=== PATIENT | female | born 1960 | race Caucasian/White ===

== ENCOUNTER 2019-07-03 21:14 | Emergency (ER) | payer BC ==
[2019-07-03] MEDS ORDERED: Etomidate* 2 MG/ML 20 ML VIAL (40 MG) ONE (21:16)
[2019-07-03] MEDS ORDERED: Succinylcholine* 20 MG/ML 10 ML VIAL ONE (21:18)
[2019-07-03] MEDS ORDERED: NS 0.9% 1000 ML** 1,000 ML IV ONE (21:20)
--- NOTE | 2019-07-03 21:27 | ED ---
Neurological HPI - HPI Summary HPI Summary: HISTORY OF PRESENT ILLNESS IS LIMITED DUE TO LEVEL 5 CAVEAT - UNRESPONSIVE. Patient is a 58 y/o F presenting to the ED via EMS for a chief complaint of headache. Per EMS, patient was unresponsive on arrival and was reported to be complaining of a headache and speaking to her when she lost consciousness. Patient was given suction by EMS due to a respiratory rate of 6- 8. Any significant PMHx was denied by the patient's . Last known well time was approximately 20:30 on 07/03/19. Patient is a tobacco user. Patient does not have a fever. - History of Current Complaint Stated Complaint: CODE FARRELL Hx Obtained From: EMS Onset/Duration: Sudden Onset Timing: Sudden Onset Associated Signs and Symptoms: Positive: Headache, Loss of Consciousness PMH/Surg Hx/FS Hx/Imm Hx Previously Healthy: No - LIMITED DUE TO LEVEL 5 CAVEAT - UNRESPONSIVE. Cardiovascular History: Denies: Hx Hypertension Sensory History: Denies: Hx Legally Blind, Hx Deafness Opthamlomology History: Denies: Hx Legally Blind EENT History: Denies: Hx Deafness Infectious Disease History: No - Family History Known Family History: Positive: Unknown, Non-Contributory Review of Systems - ROS Summary Review of Systems Summary: REVIEW OF SYSTEMS IS LIMITED DUE TO LEVEL 5 CAVEAT - UNRESPONSIVE. Negative: Fever Positive: Headache, Syncope All Other Systems Reviewed And Are Negative: No Physical Exam - Summary Physical Exam Summary: PHYSICAL EXAM IS LIMITED DUE TO LEVEL 5 CAVEAT - UNRESPONSIVE. Appearance: Arrives to ED unresponsive and hyponeic with respiratory rate of 6- 8 diffusely flaccid. Skin: Warm, dry, no obvious rash Eyes: sclera anicteric, no conjunctival pallor ENT: mucous membranes moist, pharynx appears normal Neck: Supple, nontender Respiratory: Clear to auscultation, no signs of respiratory distress Cardiovascular: Normal S1, S2. No murmurs. Normal distal pulses in tibial and radial bilaterally. Abdomen: Soft, nontender, normal active bowel sounds present Musculoskeletal: Normal, Strength/ROM Intact Neurological: Comatose with a GCS of 6, responds to painful stimuli, diffusely flaccid, right pupil is normal and reactive, left pupil is dilated and unreactive, no external signs of trauma. Psychiatric: affect is normal, does not appear anxious or depressed Triage Information Reviewed: Yes Vital Signs Reviewed: Yes - Thelma Coma Scale Best Eye Response: 1 - None Best Motor Response: 4 - Withdraws Best Verbal Response: 1 - None Coma Scale Total: 6 Procedures - Procedure Summary Procedure Summary: Second intubation was displaced during CXR. 7.5 cm ET tube under scope guidance placed without complication. - Sedation Patient Received Moderate/Deep Sedation with Procedure: No - Intubation Time of Intubation: 19:16 Intubation Method: orotracheal Tube Size (cm): 8.0 Medications: Succinylcholine Breath Sounds after Intubation: equal Intubation Complications: no complications Post Intubation Xray: Yes Diagnostics - Laboratory Result Diagrams: 07/03/19 21:23 07/03/19 21:23 Lab Statement: Any lab studies that have been ordered have been reviewed, and results considered in the medical decision making process. - Radiology Chest X-ray Radiology Interpretation Completed By: ED Physician Summary of Radiographic Findings: Chest X-ray IMPRESSION: ET tube is in good position just above the level of the aortic arch. Reviewed and interpreted by Dr. Lea, pending official radiology report. - CT Brain CT CT Interpretation Completed By: Radiologist Summary of CT Findings: Brain CT IMPRESSION: Large volume acute subarachnoid hemorrhage with intraventricular extension and mild frontal lobe rightward midline shift. Focal suprasellar cistern hematoma suggests a possible basilar or left carotid aneurysm etiology. Recommend followup head CTA. [place] Stroke Program Early CT Score (ASPECTS) = 10. Reviewed by Dr. Lea. - EKG 21:20 Cardiac Rate: NL - 72 BPM EKG Rhythm: Sinus Rhythm ST Segment: Normal Ectopy: None Summary of EKG Findings: EKG at 21:20 shows NSR at 72 BPM, no STEMI, P waves, QRS complex, and T waves are within normal limits, T waves and intervals are normal, no ischemic changes. LVM with secondary repolarization abnormality, probable anterior infarct, age indeterminate. Reviewed and interpreted by Dr. Lea. Course/Dx - Course Course Of Treatment: LIMITED DUE TO LEVEL 5 CAVEAT - UNRESPONSIVE. Patient is a 58 y/o F presenting to the ED via EMS for a chief complaint of headache. Per EMS, patient was unresponsive on arrival and was reported to be complaining of a headache and speaking to her when she lost consciousness. Patient was given suction by EMS due to a respiratory rate of 6-8. Any significant PMHx was denied by the patient's . Last known well time was approximately 20:30 on 07/03/19. Patient is a tobacco user. Patient does not have a fever. On exam , arrives to ED unresponsive and hyponeic with respiratory rate of 6-8 diffusely flaccid. Comatose with a GCS of 6, responds to painful stimuli, diffusely flaccid, right pupil is normal and reactive, left pupil is dilated and unreactive, no external signs of trauma. EKG at 21:20 shows NSR at 72 BPM, no STEMI, P waves, QRS complex, and T waves are within normal limits, T waves and intervals are normal, no ischemic changes. LVM with secondary repolarization abnormality, probable anterior infarct, age indeterminate. Chest X-ray IMPRESSION: ET tube is in good position just above the level of the aortic arch. Brain CT IMPRESSION: Large volume acute subarachnoid hemorrhage with intraventricular extension and mild frontal lobe rightward midline shift. Focal suprasellar cistern hematoma suggests a possible basilar or left carotid aneurysm etiology. Recommend followup head CTA. [place] Stroke Program Early CT Score (ASPECTS) = 10. At 21:59, Dr. Brand at [facility] reviewed the patients case and agrees to accept the transfer with a diagnosis of subarachnoid hemorrhage. Patient will be transferred to [facility] with a diagnosis of subarachnoid hemorrhage. - Diagnoses Provider Diagnoses: Subarachnoid hemorrhage During the Visit The Following Alert/Code Occurred: Code Burns - CODE BURNS CALLED AT 21:02 ETA 10 MINUTES. EMS ARRIVAL TO [facility] AT 21:11. DR. LEA AT BEDSIDE AT 21:11. TAKEN TO CT SUITE AT 21:24. - Physician Notifications Discussed Care Of Patient With: Sunday - At 21:59, Dr. Brand at [facility] reviewed the patients case and agrees to accept the transfer with a diagnosis of subarachnoid hemorrhage. Time Discussed With Above Provider: 21:59 Instructed by Provider To: Transfer - Critical Care Time Critical Care Time: 30-74 min - 45 minutes Discharge ED - Sign-Out/Discharge Documenting (check all that apply): Patient Departure - Transfer - Discharge Plan Condition: Critical Disposition: TRANS HIGHER LVL OF CARE FAC Referrals: Lux Pérez MD [Primary Care Provider] - - Billing Disposition and Condition Condition: CRITICAL Disposition: Trans Higher Lvl of Care Fac - Attestation Statements Document Initiated by Scribe: Yes Documenting Scribe: Alanna Conner Provider For Whom Scribe is Documenting (Include Credential): Nader Lea MD Scribe Attestation: IAlanna, scribed for Nader Lea MD on 07/03/19 at 2236. Scribe Documentation Reviewed: Yes Provider Attestation: The documentation as recorded by the scribeAlanna accurately reflects the service I personally performed and the decisions made by me, Nader Lea MD Status of Scribe Document: Viewed
[2019-07-03 21:32] LABS: ABS Basophils 0.1 10^3/ul (0-0.2); ABS Eosinophils 0.2 10^3/ul (0-0.6); ABS Lymphocytes 1.3 10^3/ul (1.0-4.8); ABS Monocytes 0.3 10^3/ul (0-0.8); ABS Neutrophils 5.9 10^3/ul (1.5-7.7); Eosinophil % 3.1 %; Hematocrit 47 % (35-47); Hemoglobin 16.1 g/dL (12.0-16.0); Lymphocyte % 16.9 %; Mean Corpuscular HGB Conc 34 g/dL (31-36); Mean Corpuscular Hemoglobin 32 pg (27-31); Mean Corpuscular Volume 95 fL (80-97); Mean Platelet Volume 8.6 fL (7.4-10.4); Nucleated Red Blood Cells % 0.1; Platelet Count 231 10^3/uL (150-450); Red Blood Count 4.96 10^6 /uL (3.70-4.87); Red Cell Distribution Width 13 % (10-15); White Blood Count 7.8 10^3/uL (3.5-10.8)
[2019-07-03 21:43] LABS: Activated Partial Thrombo Time 27.1 seconds (26.0-38.0); INR 0.98 (0.82-1.09)
[2019-07-03] MEDS ORDERED: Propofol* 100 ML IV ONE (21:54)
[2019-07-03 21:57] LABS: Albumin 4.1 g/dL (3.2-5.2); Albumin/Globulin Ratio 1.4 (1-3); BUN/Creatinine Ratio 43.3 (8-20); Calcium 9.7 mg/dL (8.6-10.3); EGFR African American 109.4 (>60); EGFR Non-African American 90.4 (>60); HDL Cholesterol 66.5 mg/dL; Total Bilirubin 0.5 mg/dL (0.2-1.0); Total Protein 7.1 g/dL (6.4-8.9); Troponin I 0.01 ng/mL (<0.03)
[2019-07-03] MEDS ORDERED: Propofol* 100 ML ONE (22:00)
[2019-07-03] MEDS ORDERED: niCARdipine 0.1MG/ML IVPREMIX* 20 MG/200 ML BAG IV SCH (22:00)
[2019-07-03] MEDS ORDERED: Propofol* 100 ML IV SCH (23:00)
[2019-07-03 23:36] VITALS: BP 103/78
== END 2019-07-03 23:34 | disposition short-term general hospital (02) ==
LOC: ED 21:14
DX: I60.9 Nontraumatic subarachnoid hemorrhage, unspecified (principal); R51 Headache; R55 Syncope and collapse; R94.31 Abnormal electrocardiogram [ECG] [EKG]
CPT/HCPCS: 36415; 70450; 71045; 80053; 80061; 83605; 84484; 85025; 85610; 85730; 93005; 96365; 96367; 99285; J0330; J2704